=== PATIENT | female | born 1955 | race Caucasian/White ===

== ENCOUNTER 2017-01-11 09:05 | Emergency (ER) | payer OTHER ==
[~2017-01-11] VITALS: Ht 175.3 cm; Wt 113.4 kg
[2017-01-11 10:08] LABS: BASOPHIL % 0.6 % (0-2); PLATELET COUNT 355 x10^3mcL (130-400); RED CELL DISTRIBUTION WIDTH 13.9 % (11.5-14.5)
[2017-01-11 10:15] LABS: CALCIUM 9.1 mg/dL (8.5-10.1); CARBON DIOXIDE 27.3 mmol/L (21-32); CHLORIDE SERUM 100 mmol/L (98-107); CREATININE SERUM 0.8 mg/dL (0.6-1.0); GFR1 > 60 mL/min; GLUCOSE SERUM 154 mg/dL (74-106); POTASSIUM SERUM 3.5 mmol/L (3.5-5.1); SODIUM SERUM 139 mmol/L (136-145)
[2017-01-11 10:19] LABS: ALBUMIN 3.4 g/dL (3.4-5.0); ALKALINE PHOSPHATASE 120 U/L (46-116); ALT/SGPT 24 U/L (14-59); AST/SGOT 22 U/L (15-37); BILIRUBIN TOTAL 0.3 mg/dL (0.20-1.00); LIPASE 104 IU/L (73-393); TOTAL PROTEIN, SERUM 7.3 g/dL (6.4-8.2)
[2017-01-11 10:21] LABS: AMYLASE 24 U/L (25-115)
[2017-01-11 11:29] VITALS: BP 160/76
== END 2017-01-11 11:29 | disposition home or self-care (01) ==
LOC: ED 09:05
PROVIDERS: Emergency Medicine
DX: K80.50 Calculus of bile duct without cholangitis or cholecystitis without obstruction (principal)
CPT/HCPCS: 83880; J1170; J1885; J2550; J3010

== ENCOUNTER 2017-03-17 00:49 | Inpatient (IN) | payer OTHER ==
[~2017-03-17] VITALS: Ht 177.8 cm; Wt 105.4 kg
[2017-03-17 01:49] LABS: BASOPHIL % 1.9 % (0-2); RED CELL DISTRIBUTION WIDTH 12.3 % (11.5-14.5)
[2017-03-17 02:00] LABS: CALCIUM 9.2 mg/dL (8.5-10.1); CARBON DIOXIDE 28.5 mmol/L (21-32); CHLORIDE SERUM 103 mmol/L (98-107); CREATININE SERUM 0.8 mg/dL (0.6-1.0); GFR1 > 60 mL/min; GLUCOSE SERUM 159 mg/dL (74-106); POTASSIUM SERUM 4.3 mmol/L (3.5-5.1); SODIUM SERUM 139 mmol/L (136-145)
[2017-03-17 02:05] LABS: ALKALINE PHOSPHATASE 110 U/L (46-116); ALT/SGPT 8 U/L (14-59); AMYLASE 33 U/L (25-115); AST/SGOT 18 U/L (15-37); BILIRUBIN TOTAL 0.35 mg/dL (0.20-1.00); LIPASE 176 IU/L (73-393); TOTAL PROTEIN, SERUM 7.1 g/dL (6.4-8.2)
[2017-03-17 02:10] LABS: ALBUMIN 3.2 g/dL (3.4-5.0)
[2017-03-17 02:13] LABS: PLATELET COUNT 416 x10^3mcL (130-400)
[2017-03-17 04:50] LABS: CHOLESTEROL/HDL RATIO 3.5; MAGNESIUM 1.9 mg/dL (1.8-2.4); PHOSPHOROUS 3.4 mg/dL (2.5-4.9); T3 TOTAL 1.52 ng/mL
[2017-03-17 04:54] LABS: FREE T4 1.06 ng/dL (0.76-1.46); FREE THYROXINE INDEX 3.1 ug/dL (1.4-4.5); T4(THYROXINE) 9.4 ug/dL (4.7-13.3)
[2017-03-17 04:57] VITALS: BP 172/100
[2017-03-17 13:28] VITALS: BP 139/73
[2017-03-17 18:04] VITALS: BP 142/71
[2017-03-17 20:03] LABS: BASOPHIL % 0.6 % (0-2); RED CELL DISTRIBUTION WIDTH 13.2 % (11.5-14.5)
[2017-03-17 20:09] VITALS: BP 155/86
[2017-03-17 20:10] LABS: PLATELET COUNT 417 x10^3mcL (130-400)
[2017-03-17 20:25] LABS: ALKALINE PHOSPHATASE 113 U/L (46-116); ALT/SGPT 58 U/L (14-59); AST/SGOT 66 U/L (15-37); BILIRUBIN TOTAL 0.44 mg/dL (0.20-1.00); CALCIUM 8.8 mg/dL (8.5-10.1); CARBON DIOXIDE 29.5 mmol/L (21-32); CHLORIDE SERUM 103 mmol/L (98-107); CREATININE SERUM 0.9 mg/dL (0.6-1.0); GFR1 > 60 mL/min; GLUCOSE SERUM 142 mg/dL (74-106); POTASSIUM SERUM 4.5 mmol/L (3.5-5.1); SODIUM SERUM 138 mmol/L (136-145)
[2017-03-17 21:25] VITALS: BP 155/89
[2017-03-17 22:16] VITALS: BP 117/72
[2017-03-18 06:36] VITALS: BP 162/89
[2017-03-18 07:12] LABS: BASOPHIL % 0.3 % (0-2); PLATELET COUNT 333 x10^3mcL (130-400); RED CELL DISTRIBUTION WIDTH 13.6 % (11.5-14.5)
[2017-03-18 07:29] LABS: CALCIUM 8.4 mg/dL (8.5-10.1); CHLORIDE SERUM 107 mmol/L (98-107); CREATININE SERUM 0.7 mg/dL (0.6-1.0); GFR1 > 60 mL/min; GLUCOSE SERUM 125 mg/dL (74-106); MAGNESIUM 2.1 mg/dL (1.8-2.4); PHOSPHOROUS 3.4 mg/dL (2.5-4.9); POTASSIUM SERUM 4.2 mmol/L (3.5-5.1); SODIUM SERUM 140 mmol/L (136-145)
[2017-03-18 09:35] VITALS: BP 151/87
[2017-03-18 12:11] VITALS: BP 153/82
[2017-03-18 19:08] VITALS: BP 162/88
[2017-03-18 20:37] VITALS: BP 147/75
[2017-03-19 05:27] VITALS: BP 154/85
[2017-03-19 08:18] LABS: PLATELET COUNT 280 x10^3mcL (130-400); RED CELL DISTRIBUTION WIDTH 14.2 % (11.5-14.5)
[2017-03-19 10:00] LABS: CALCIUM 8.2 mg/dL (8.5-10.1); CARBON DIOXIDE 28.7 mmol/L (21-32); CHLORIDE SERUM 106 mmol/L (98-107); CREATININE SERUM 0.7 mg/dL (0.6-1.0); GFR1 > 60 mL/min; GLUCOSE SERUM 152 mg/dL (74-106); POTASSIUM SERUM 3.6 mmol/L (3.5-5.1); SODIUM SERUM 142 mmol/L (136-145)
[2017-03-19 10:12] VITALS: BP 150/76
[2017-03-19] MEDS ORDERED: ZES20 PO (12:30)
[2017-03-19] MEDS ORDERED: APAP/HYDROCODON1 T13 PO (12:31)
[2017-03-19 12:57] VITALS: BP 150/76
[2017-03-19] MEDS ORDERED: COL100 PO (13:07)
[2017-03-19 13:36] VITALS: BP 136/77
== END 2017-03-19 14:04 | disposition home or self-care (01) | DRG 263 ==
LOC: ED 00:49 → DU 03:39
PROVIDERS: Emergency Medicine; Surgery; ADMIT Family Medicine
PROC: 0FT44ZZ Resection of Gallbladder, Percutaneous Endoscopic Approach (ICD-10-PCS; principal; 2017-03-17 08:00)
DX: K80.00 Calculus of gallbladder with acute cholecystitis without obstruction (principal); N17.0 Acute kidney failure with tubular necrosis; F17.210 Nicotine dependence, cigarettes, uncomplicated; M51.37 Other intervertebral disc degeneration, lumbosacral region; K57.30 Diverticulosis of large intestine without perforation or abscess without bleeding; Z68.33 Body mass index [BMI] 33.0-33.9, adult; E66.9 Obesity, unspecified; Z53.29 Procedure and treatment not carried out because of patient's decision for other reasons
CPT/HCPCS: 83880; 84439; 94150; J0330; J0690; J1170; J1885; J2250; J2405; J2704; J2710; J2765; J3010; J3490; J7030; J7120; Q0092